=== PATIENT | female | born 1960 | race Caucasian/White ===

== ENCOUNTER 2021-11-14 14:01 | Emergency (ER) | payer BC, OTHER ==
[2021-11-14] MEDS ORDERED: EPINEPHrine 1 MG/ML SDV IM PRN (15:45)
[2021-11-14] MEDS ORDERED: diphenhydrAMINE 50 MG/ML SDV IVPUSH PRN (15:45)
[2021-11-14] MEDS ORDERED: Famotidine 20 MG/2 ML SDV IV PRN (15:45)
[2021-11-14] MEDS ORDERED: methylPREDNISolone Sodium Succinate 125 MG/2 ML SDV IVPUSH PRN (15:45)
[2021-11-14] MEDS ORDERED: Acetaminophen 325 MG Tab PO PRN (15:45)
== END 2021-11-14 17:17 | disposition home or self-care (01) ==
LOC: JP.ED 14:01
DX: U07.1 COVID-19 (principal); I25.2 Old myocardial infarction
CPT/HCPCS: 99282; 99284-25; J3490; M0247; Q0247

== ENCOUNTER 2023-12-15 22:13 | Emergency (ER) | payer SELFPAY ==
[2023-12-15] MEDS: HYDROmorphone 0.5 MG/0.5 ML Syringe IM ONE (23:58)
== END 2023-12-16 01:21 | disposition home or self-care (01) ==
LOC: JP.ED 22:13
DX: S02.40DA Maxillary fracture, left side, initial encounter for closed fracture (principal); S02.40CA Maxillary fracture, right side, initial encounter for closed fracture; I25.2 Old myocardial infarction; W10.8XXA Fall (on) (from) other stairs and steps, initial encounter
CPT/HCPCS: 70450; 70486; 72125; 76377; 96372; 99284; J1170